=== PATIENT | female | born 1970 | race Caucasian/White ===

== ENCOUNTER 2018-12-19 13:07 | Outpatient (CLI) | payer BC, SELFPAY ==
--- NOTE | 2018-12-19 13:00 | DI.RAD_ITS ---
SYMPTOMS/DIAGNOSIS: INJURY TO RT KNEE, PAIN, S89.90XA RIGHT KNEE: Four views. Mild periarticular spurring is seen in the medial femoral tibial joint space. The joint spaces are otherwise well maintained. The bones are intact and normally mineralized. There are enthesophytes seen at the superior and inferior patella and the anterior tibial tuberosity. No radiopaque foreign bodies are seen in the soft tissues. No acute fracture or dislocation is present. IMPRESSION: Mild degenerative changes of the right knee.
== END 2018-12-19 13:27 ==
PROVIDERS: Visit Provider Family Medicine
DX: M25.561 Pain in right knee (principal); S89.91XA Unspecified injury of right lower leg, initial encounter; M17.11 Unilateral primary osteoarthritis, right knee
CPT/HCPCS: 73564

== ENCOUNTER 2020-03-16 12:46 | Outpatient (REF) | payer MEDICAID, SELFPAY ==
--- NOTE | 2020-03-16 11:30 | PAPFT_PTH ---
PATIENT: Yanci Nash LOC: [facility] U#:[id number] AGE/SX: 49/F ROOM: RE03/16/[address]: Brenda Melendez APRN : 1970 BED: DIS: 03/16/2020 SPEC #: [id number] RECD: 03/17/20 12:39 STATUS: CHRISTA REMagdaleno #: [id number] GRACIE: 03/16/20 11:[address]: Brenda Melendez DEPT: [facility] Cytology RECD BY: Sangita Hutchinson Tissues: 1 - CX/ENDOCX FOR PAP SMEARS Procedures: PAP THIN PREP/UVM Screening HPV DNA PROBE Comments: [id number]
== END 2020-03-16 13:06 ==
LOC: LBN 12:46
DX: Z12.4 Encounter for screening for malignant neoplasm of cervix (principal); Z11.59 Encounter for screening for other viral diseases
CPT/HCPCS: 88142; 87624

== ENCOUNTER 2020-04-09 00:20 | Outpatient (CLI) | payer BC, MEDICAID, SELFPAY ==
--- NOTE | 2020-04-09 06:00 | DI.MAMMO_ITS ---
EXAM: MAMMO SCREENING CLINICAL HISTORY: screening,z12.39 TECHNIQUE: Mammograms were interpreted according to the usual protocol including computer analysis w [employer] CAD system, tomosynthesis and C-view imaging. COMPARISON: 2010 through 2015 FINDINGS: The breasts are composed of scattered fibroglandular densities, Breast Density category B. Right breast: No suspicious masses or suspicious microcalcifications are seen. No skin thickening or abnormal axillary lymph nodes are seen. There has been no significant change from prior exams. Left breast: There has been interval development a circumscribed area of nodularity in the medial lef t breast at the level of the nipple on the MLO view. It measures roughly 15 millimeters in greatest dimension. There are no associated microcalcifications. No additional abnormalities are seen. Spot compression views and ultrasound recommended for further evaluation. IMPRESSION: New nodule in the medial left breast. Spot compression views and ultrasound are recommended for furt her evaluation. BI-RADS Cat 0 - Assessment Incomplete: Need additional imaging evaluation Breast Density Category B, scattered fibroglandular densities. Up to ten percent of cancers are not identified on mammography. A negative report may reinforce clinical impression. Adenosis and dense breasts may obscure an underlying neoplasm. False positive reports average 6 to 10%. Patient will receive a letter notifying them of these results.
== END 2020-04-09 00:40 ==
DX: Z12.31 Encounter for screening mammogram for malignant neoplasm of breast (principal); N63.20 Unspecified lump in the left breast, unspecified quadrant
CPT/HCPCS: 77063; 77067

== ENCOUNTER 2020-04-16 02:13 | Outpatient (CLI) | payer BC, MEDICAID, SELFPAY ==
--- NOTE | 2020-04-16 | DI.US_ITS ---
EXAM: MG MAMMO SCREEN CALL BACK UNI CLINICAL HISTORY: F/U MAMMO, INTERVAL DEVELOPMENT NODULARITY MEDIAL LT BREAST ON MLO VIEW TECHNIQUE: Mammograms were interpreted according to the usual protocol including computer analysis w Dr. Scribbles CAD system, tomosynthesis and C-view imaging. COMPARISON: FINDINGS: Additional mammographic views of the left breast and left breast ultrasound are interpreted in conjun ction. These examinations were obtained to evaluate a questionable area of nodularity seen in the me dial aspect of the left breast on recent examination in approximately the 9 to 10 o'clock position. Additional spot compression views show fairly well-circumscribed group of small nodules with findings suggesting hilar structure. Mammographic findings are consistent with small lymph nodes. Ultrasonographically the findings are somewhat atypical for lymph nodes, the lesions are reniform and the largest nodule measures about 18 millimeters in diameter, there is a probable hilar structure, h owever the nodularity is of high echogenicity with some questionable posterior shadowing. Mildly inc reased vascularity noted centrally. IMPRESSION: Suspected intramammary lymph nodes, atypical ultrasound appearance, malignancy not excluded. Correla tion with ultrasound-guided biopsy recommended. BI-RADS Category 4 - Suspicious Abnormality: Biopsy should be considered Breast Density - Category B - Scattered areas of fibroglandular density
== END 2020-04-16 02:33 ==
DX: Z12.39 Encounter for other screening for malignant neoplasm of breast (principal); R92.8 Other abnormal and inconclusive findings on diagnostic imaging of breast; N63.21 Unspecified lump in the left breast, upper outer quadrant
CPT/HCPCS: 76642; 77063; 77067

== ENCOUNTER 2020-08-17 01:23 | Outpatient (CLI) | payer BC, MEDICAID, SELFPAY ==
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
--- NOTE | 2020-08-17 13:58 | DI.MAMMO_ITS ---
EXAM: MG MAMMO DIAGNOSTIC UNI MG MAMMO DIAGNOSTIC UNI AND UNILATERAL BREAST ULTRASOUND -LEFT CLINICAL HISTORY: [facility] [place] recommendation - hematoma, no Bx needed, abnl lt breast, R92.8. TECHNIQUE: Unilateral spot mammographic images were obtained with [employer] and util izing computer aided detection (CAD). LEFT BREAST ULTRASOUND ALSO PERFORMED COMPARISON: Prior mammograms, the most recent being April 09, 2020. FINDINGS: Previously described asymmetric density medially in the left breast has slightly decreased in size. I n addition, there is another 5 x 3 millimeter nodule closer to the nipple in the medial aspect of the left breast noted. There are other new additional left breast mammogram findings. We thereafter performed left breast ultrasound and this again reveals the previously described relati vely superficial finding at the 9 o'clock position which has the appearance of fat necrosis-hematoma. Second ultrasound finding is a 3 millimeter microcyst at the 9-10 o'clock position which corresponds to the smaller nodule on the mammogram. IMPRESSION: No evidence of malignancy. Both findings on mammography and ultrasound of the left breast have benign appearance, 1 being fat necrosis/hematoma and the other being a simple microcyst which corresponds t o the smaller new nodule. Appropriate follow-up is to keep this patient on a yearly mammogram schedule, with earlier imaging if a self detected breast is noted. BI-RADS Category 2 - Benign Findings Breast Density - Category B - Scattered areas of fibroglandular density Breast density Category C or D implies that the patient has dense breast tissue. Dense breast tissue can make it harder to find cancer on a mammogram. Dense breast tissue is also associated with an incr eased risk of breast cancer. This information about the result of the mammogram report was provided to the patient to raise their awareness. Use this report when you speak with the patient about their risks for breast cancer, which includes their family history. At that time, you may recommend additional screening tests (Ultrasoun d or MRI) as these tests may add significant information. A negative radiographic report should not delay biopsy if a dominant or clinically suspicious mass is present. Up to ten percent of cancers are not identified on mammography. A negative report may reinforce clinical impression. Adenosis and dense breasts may obscure an underlying neoplasm. False positive reports average 6 to 10%. Patient will receive a letter notifying them of these results.
== END 2020-08-17 01:43 ==
DX: R92.8 Other abnormal and inconclusive findings on diagnostic imaging of breast (principal); N64.89 Other specified disorders of breast; N60.02 Solitary cyst of left breast
CPT/HCPCS: 76642; 77061; 77065; G0279

== ENCOUNTER 2024-01-29 11:38 | Outpatient (CLI) | payer MEDICAID, SELFPAY ==
[2024-01-29 12:22] LABS: Abs Immature Grans 0.02 10^3/uL (0.0-0.06); Absolute Basophil Count 0.11 10^3/uL (0.0-0.2); Absolute Eosinophil Count 0.09 10^3/uL (0.0-0.7); Absolute Lymphocyte Count 1.81 10^3/uL (1.2-3.4); Absolute Monocyte Count 0.63 10^3/uL (0.1-0.8); Absolute Neutrophil Count 7.14 10^3/uL (1.2-6.7); Basophils % 1.1 %; Eosinophils % 0.9 %; HCT 42.3 % (36.0-46.0); HGB 14.6 g/dL (11.2-15.7); Immature Grans % 0.2 %; Lymphocytes % 18.5 %; MCH 29.6 pg (27.0-33.0); MCHC 34.5 % (32.0-36.0); MCV 86 fL (80-95); MPV 10.9 fL (8.0-11.0); Monocytes % 6.4 %; Neutrophils % 72.9 %; Platelet Count 262 10^3/uL (130-400); RBC 4.93 10^6/uL (3.93-5.22); RDW 12.6 % (11.7-14.6); RDW-SD 38.9 fL
[2024-01-29 12:40] LABS: ALT 59 U/L (14-59); AST 34 U/L (15-37); Albumin 3.6 g/dL (3.4-5.0); Alkaline Phosphatase 74 U/L (46-116); BUN 12 mg/dL (7-18); Bilirubin, Total 0.6 mg/dL (0.2-1.0); CREATININE 1.1 mg/dL (0.55-1.02); Calcium 9.5 mg/dL (8.5-10.1); Calculated LDL 108 mg/dL (<100); Chloride 97 mmol/L (98-107); Cholesterol 194 mg/dL (<200); Estimated GFR 60.08 (mL/min/1.73m2); Glucose 410 mg/dL (74-106); HDL Cholesterol 37 mg/dL (40-60); Sodium 137 mmol/L (136-145); Total Protein 7.4 g/dL (6.4-8.2); Triglyceride 245 mg/dL (<150)
[2024-01-29 12:52] LABS: Hemoglobin A1C 10.9 % (<5.7)
== END 2024-01-29 11:39 | disposition home or self-care (01) ==
LOC: LOS 11:38
PROVIDERS: PCP Nurse Practitioner Family; Visit Provider Nurse Practitioner Family
DX: E11.9 Type 2 diabetes mellitus without complications (principal); R74.8 Abnormal levels of other serum enzymes; K61.1 Rectal abscess
CPT/HCPCS: 36415; 80053; 80061; 83036; 85025

== ENCOUNTER 2024-01-29 13:08 | Outpatient (REF) | payer MEDICAID, SELFPAY | END 2024-01-29 13:09 | disposition home or self-care (01) | LOC: LBN 13:08 | PROVIDERS: PCP Nurse Practitioner Family; Visit Provider Nurse Practitioner Family | DX: N89.8 Other specified noninflammatory disorders of vagina (principal) | CPT/HCPCS: 87480; 87510; 87660 ==

== ENCOUNTER 2024-05-18 12:41 | Outpatient (REF) | payer BC, SELFPAY ==
[2024-05-18 19:04] LABS: COMMENT (LAB VIEW ONLY) 112.08 mg/dL; Microalb ug/mg Crea 10.3 ug/mg Cr
== END 2024-05-18 12:42 | disposition home or self-care (01) ==
LOC: LBN 12:41
PROVIDERS: PCP Nurse Practitioner Family; Visit Provider Nurse Practitioner Family
DX: E11.9 Type 2 diabetes mellitus without complications (principal)
CPT/HCPCS: 82043; 82570

== ENCOUNTER 2024-06-03 01:16 | Outpatient (CLI) | payer BC, SELFPAY ==
--- NOTE | 2024-06-03 07:00 | DI.MAMMO_ITS ---
Exam(s) MAMMO SCREENING EXAM: MAMMO SCREENING CLINICAL HISTORY: screening,z12.39 TECHNIQUE: Bilateral full field digital CC and MLO mammographic images were obtained with 3D tomosyn thesis and utilizing computer aided detection (CAD). COMPARISON: Available for comparison. FINDINGS: Masses/Architectural Distortion: The well-circumscribed nodule in the medial right breast is unchange d compared to the prior examinations. No new or suspicious nodules are seen. No areas of architectu ral distortion are seen. Microcalcifications: No suspicious pleomorphic-type are seen. Skin Thickening/Nipple Retraction: None. IMPRESSION: 1. No significant interval change with no specific features of malignancy noted. 2. Unless there is more urgent need, screening mammography is recommended, as per [place] [employer] guidelines. BI-RADS Category 2 - Benign Findings Breast Density - Category B - Scattered areas of fibroglandular density Breast density category C or D implies that the patient has dense breast tissue. Dense breast tissue is very common and is not abnormal but dense breast tissue can make it harder to find cancer on a ma mmogram. Also, dense breast tissue may increase their breast cancer risk. This information about the result of the mammogram report was provided to the patient to raise their awareness. Use this report when you speak with the patient about their risks for breast cancer, which includes their family hist ory. At that time, you may recommend for more screening tests (Ultrasound or MRI) as they might be us eful based on their risk. A negative radiographic report should not delay biopsy if a dominant or clinically suspicious mass is present. Up to ten percent of cancers are not identified on mammography. A negative report may reinforce clinical impression. Adenosis and dense breasts may obscure an underlying neoplasm. False positive reports average 6 to 10%. Patient will receive a letter notifying them of these results.
== END 2024-06-03 01:36 ==
LOC: DI 01:16
PROVIDERS: PCP Nurse Practitioner Family; Visit Provider Nurse Practitioner Family
DX: Z12.31 Encounter for screening mammogram for malignant neoplasm of breast (principal)
CPT/HCPCS: 77063; 77067

== ENCOUNTER 2025-05-31 10:24 | Outpatient (REF) | payer BC, SELFPAY ==
--- NOTE | 2025-05-31 09:20 | PAPFT_PTH ---
PATIENT: Yanci Nash LOC: [facility] U#:[id number] AGE/SX: 54/F ROOM: RE05/31/[address]: Brian Tellez DNP : 1970 BED: DIS: 05/31/2025 SPEC #: [id number] RECD: 06/02/25 11:35 STATUS: CHRISTA REQ #: [id number] GRACIE: 05/31/25 09:[address]: Brian Voss DEPT: [facility] Cytology RECD BY: Sasha Walker Tissues: 1 - CX/ENDOCX FOR PAP SMEARS Procedures: PAP THIN PREP/UVM Screening HPV DNA PROBE Comments: [id number] (HPV 16 & 18/45) (CHLAMYDIA/GC)
[2025-05-31 16:14] LABS: Hemoglobin A1C 10.2 % (<5.7)
[2025-05-31 16:15] LABS: ALT 43 U/L (14-59); AST 20 U/L (15-37); Albumin 3.6 g/dL (3.4-5.0); Alkaline Phosphatase 79 U/L (46-116); Anion Gap 10.9 mmol/L (3-11); BUN 15 mg/dL (7-18); Bilirubin, Total 0.3 mg/dL (0.2-1.0); CO2 28.1 mmol/L (21.0-32.0); Calcium 9.2 mg/dL (8.5-10.1); Chloride 99 mmol/L (98-107); Cholesterol 128 mg/dL (<200); Glucose 275 mg/dL (74-106); HDL Cholesterol 38 mg/dL (>or=50); Potassium 4.2 mmol/L (3.5-5.1); Sodium 138 mmol/L (136-145); Total Protein 7.2 g/dL (6.4-8.2)
[2025-06-03 14:10] LABS: Chlamydia Result Negative (Negative); GC Result Negative (Negative)
== END 2025-05-31 10:25 | disposition home or self-care (01) ==
LOC: LBN 10:24
PROVIDERS: PCP Nurse Practitioner Family; Visit Provider Nurse Practitioner Family
DX: E11.9 Type 2 diabetes mellitus without complications (principal); N89.8 Other specified noninflammatory disorders of vagina; Z12.4 Encounter for screening for malignant neoplasm of cervix
CPT/HCPCS: 80053; 80061; 87491; 87591; 88142; 83036; 87480; 87510; 87624; 87660

== ENCOUNTER 2025-06-16 03:37 | Outpatient (CLI) | payer BC, SELFPAY ==
--- NOTE | 2025-06-16 07:45 | DI.MAMMO_ITS ---
Exam(s) MAMMO SCREENING EXAM: MAMMO SCREENING CLINICAL HISTORY: screening,Z12.39. TECHNIQUE: Bilateral full field digital CC and MLO mammographic images were obtained with 3D tomosynthesis and utilizing computer aided detection (CAD). COMPARISON: Prior mammograms were reviewed. FINDINGS: No new left breast findings. In the right breast there is a medially located benign-appearing nodule measuring 5 x 4 mm located 5 cm in from the nipple, medial of center on the CC view. This nodule is not increased in size since 2019. There are no new spiculated masses nor new malignant appearing microcalcification groups. There is no significant architectural distortion nor skin thickening-retraction. IMPRESSION: Stable benign-appearing findings. No radiographic evidence of malignancy. BI-RADS Category 2 - Benign Findings Breast Density - Category B - There are scattered areas of fibroglandular density. Breast density Category C or D implies that the patient has dense breast tissue. Dense breast tissue can make it harder to find cancer on a mammogram. Dense breast tissue is also associated with an increased risk of breast cancer. This information about the result of the mammogram report was provided to the patient to raise their awareness. Use this report when you speak with the patient about their risks for breast cancer, which includes their family history. At that time, you may recommend additional screening tests (Ultrasound or MRI) as these tests may add significant information. A negative radiographic report should not delay biopsy if a dominant or clinically suspicious mass is present. Up to ten percent of cancers are not identified on mammography. A negative report may reinforce clinical impression. Adenosis and dense breasts may obscure an underlying neoplasm. False positive reports average 6 to 10%. Patient will receive a letter notifying them of these results.
== END 2025-06-16 03:57 ==
LOC: DI 03:37
PROVIDERS: PCP Nurse Practitioner Family; Visit Provider Nurse Practitioner Family
DX: Z12.31 Encounter for screening mammogram for malignant neoplasm of breast (principal); E11.9 Type 2 diabetes mellitus without complications
CPT/HCPCS: 77063; 77067

== ENCOUNTER 2025-07-04 07:34 | Day surgery (SDC) | payer BC, SELFPAY ==
[2025-07-04] VITALS (18 sets, daily range): BP systolic 132–166; BP diastolic 79–98; PULSE 74–81; RESP 15–21; TEMP 35.8–36.7; O2SAT 93–97; BMI 43.9
[2025-07-04] MEDS: Lactated Ringers 1,000 ML 80 ML IV (08:10)
--- NOTE | 2025-07-04 09:01 | W.ANESPRE ---
General Info Date of Service Date Performed: 07/04/25 Height: 5 ft 4.25 in Weight: 117.2 kg Body Mass Index (BMI): 43.9 Surgical Procedure: Operation Date: 07/04/25 08:40 Proposed Procedure Side Surgeon p Excision Cyst of Face Indiana Mackey MD s Exam Under Anesthesia Possible Seton Placement Indiana Mackey MD Meds Allergies and Home Medications Allergies Allergy/AdvReac Type Severity Reaction Status Date / Time No Known Allergies Allergy Verified 07/04/25 07:52 Home Medication Medication Instructions Recorded meclizine 25 mg tablet 25 mg PO TID PRN vertigo #60 tabs 01/03/25 amlodipine 5 mg tablet 5 mg PO DAILY #90 tabs 05/17/25 chlorthalidone 25 mg tablet 25 mg PO DAILY #90 tabs 05/17/25 losartan 50 mg tablet 50 mg PO DAILY #90 tabs 05/17/25 metformin 1,000 mg tablet 1,000 mg PO BID #180 tabs 05/17/25 omeprazole 20 mg capsule,delayed 20 mg PO DAILY #90 caps 05/17/25 release rosuvastatin 10 mg tablet 10 mg PO HS #90 tabs 05/17/25 Current Visit Medications: Current Medications Generic Name Dose Route Start Last Admin Trade Name Freq PRN Reason Stop Dose Admin Ringer's Solution 1,000 mls @ 80 mls/hr 07/04/25 06:00 07/04/25 08:10 IV 07/04/25 23:59 80 mls/hr INFUSION DANIEL Administration Cefazolin Sodium/Dextrose 2 gm in 50 mls @ 100 mls/hr 07/04/25 06:00 Ancef Duplex IVPB 07/04/25 23:59 PREOP DANIEL IV Miscellaneous Supplies 1 each 07/04/25 06:00 Iv Access IV 07/04/25 23:59 DIRECTED DANIEL Sodium Chloride 0 ml 07/04/25 06:00 Normal Saline Flush 10 Ml Syr IV 07/04/25 23:59 PRN PRN Sodium Chloride 0 ml 07/04/25 06:00 Normal Saline 10 Ml Vial IJ 07/04/25 23:59 DIRECTED PRN Sterile Water 0 ml 07/04/25 06:00 Water,Injection,Sterile 10 Ml Vial IJ 07/04/25 23:59 DIRECTED PRN PFSH Active Problems Active Problems: Problem Status Onset Code Facial lesion Acute L98.9 Vaginal pruritus Acute N89.8 Perirectal abscess Acute K61.1 Elevated liver enzymes Acute R74.8 Elbow pain, right Acute M25.521 GERD (gastroesophageal reflux disease) Chronic K21.9 Abnormality of left breast on screening mammogram Acute R92.8 Increased body mass index (BMI) Acute R63.8 Urinary incontinence Acute 10/13/15 R32 Obstructive sleep apnea syndrome Acute 02/14/12 G47.33 Essential hypertension Acute 09/17/13 I10 Diabetes mellitus Acute 11/12/12 E11.9 Allergic rhinitis Acute J30.9 Medical History Medical History Adnexal cyst (07/13/16) Skin tags, multiple acquired (07/24/17) Knee pain Acute deep vein thrombosis (DVT) of popliteal vein of left lower extremity (08/17/16) Deep vein thrombosis (DVT) of popliteal vein of left lower extremity 08/10/16 s/p laparoscopic R sided andexal cystectom for torsed paratubal cyst. Pt will be treated for 6mo with anticoagulation. Chronic hypertension Diabetes BMI 45.0-49.9, adult BMI 47 on 10/13/15 Chronic vulvitis 09/2015 x1mo. Rx with PO Fluconazole w/o improvement. 10/13/15 vag path neg. Emperically Rx with Terazole and Lotromin. Surgical History Surgical History Diagnostic Laproscopy (08/03/16) Laparoscopic R cystectomy of torsed R paratubal cyst. Pt had DVT 1 week after procedure. needs 6mo of anticoagulants. Arthroplasty of knee right x 2 Tobacco Smoking/Tobacco Use Status: Former Tobacco Use Passive smoking exposure: Yes Second hand exposure: Yes Counseling given: patient declined Alcohol Alcohol Intake: current Alcohol intake frequency: a few times a month Alcohol type: beer, wine and hard liquor Substance Use Substance use: Socially Substance use type: marijuana Counseling provided: none Vital Signs and Lab Results Vital Signs Most Recent Vital Signs in EMR: Most Recent Vital Signs Temp Pulse Resp BP Pulse Ox 36.5 C 81 20 154/90 H 97 07/04/25 07:39 07/04/25 07:39 07/04/25 07:39 07/04/25 07:39 07/04/25 07:39 Point of Care Results Point of Care Results: Finger Stick Blood Glucose 232 07/04/25 07:53 Anesthesia Assessment and Plan Anesthesia History Personal History: PONV Family History: No Family History of Anesthesia Complications Exercise Tolerance Exercise Tolerance: Metabolic Equivalents>4 Pertinent Negatives Pertinent Negatives: No Symptoms of GERD (Rx) Cardiac & Pulmonary Exam Cardiac Exam: Normal S1/S2 Heart Sounds Pulmonary Exam: Clear Bilateral Breath Sounds Implantable Cardiac Device Does patient have a Pacemaker or an ICD?: No Airway Exam Known Difficult Airway: No Mallampati Class: 2 Mouth Opening: Normal (> 3cm) Thyromental Distance: Greater than 3 cm Neck Range of Motion: Full ROM Neck Circumference: Normal Teeth Condition: Normal Dentition ASA Classification ASA Score: ASA 2 Emergency Case?: No NPO Status NPO Status: NPO Clears >2 hours, Solids >8 hours Status Status: Not Relevant due to Medical History Anesthesia Plan Resuscitation Status: Full Code Anesthesia Technique: General Anesthesia Airway Planned: LMA Monitors Used: Standard Monitors and SedLine
[2025-07-04] MEDS: ceFAZolin 2 GM/50 ML BAG IVPB (09:33)
--- NOTE | 2025-07-04 09:43 | SKI_PTH ---
PATIENT: Yanci Nash LOC: [facility] U#:[id number] AGE/SX: 54/F ROOM: RE07/04/[address]: Indiana Mackey : 1970 BED: DIS: 07/04/2025 SPEC #: [id number] RECD: 07/04/25 12:18 STATUS: CHRISTA REQ #: [id number] GRACIE: 07/04/25 09:[address]: Indiana Mackey DEPT: Surgical Specimen RECD BY: Sangita Hutchinson ENTERED: 07/04/25 12:18 SP TYPE: SILVIO MCKAY DR: Brian Tellez DNP Tissues: 1 - SKIN CYST/TAG/DEBRIDEMENT Procedures: SKIN BIOPSY LEVEL 3 Comments: [id number]
[2025-07-04] MEDS: Lidocaine 1% Pres-Free W/EPI 1/200,000 10 ML VIAL (10:07)
[2025-07-04] MEDS: Bacitracin 1 PACKET (10:07)
--- NOTE | 2025-07-04 10:26 | W.PM.DSUDISC ---
Date of service: 07/04/25 Discharge Plan Disposition Patient Disposition: Home Discharge Details Reason For Visit: Cyst of face, perianal abscess Attending Provider: Indiana Mackey Primary Care Provider: Brian Voss Recommendations for Follow Up Recommended tests to be ordered by follow up provider: Follow up pathology Home Meds and New Rx's Prescriptions: Continued meclizine 25 mg tablet 25 mg PO TID PRN (Reason: vertigo) Qty: 60 1RF amlodipine 5 mg tablet 5 mg PO DAILY Qty: 90 4RF losartan 50 mg tablet 50 mg PO DAILY Qty: 90 3RF metformin 1,000 mg tablet 1,000 mg PO BID Qty: 180 4RF omeprazole 20 mg capsule,delayed release(DR/EC) 20 mg PO DAILY Qty: 90 3RF chlorthalidone 25 mg tablet 25 mg PO DAILY Qty: 90 4RF rosuvastatin 10 mg tablet 10 mg PO HS Qty: 90 4RF Discharge Instructions Instructions: Anal Abscess and Fistula, Adult (DC) Additional Instructions: Your procedure went well today. The cyst was excised from your face and closed with suture that will need to be removed in the office. We will schedule you a follow up appointment in the office in 5-7 days for suture removal. For this incision you should shower tomorrow and allow warm soapy water to run over the incision. Do not rub the incision. Pat the incision dry and after you may leave the incision open to air. If there is any redness around it or concerning drainage please contact the general surgery office. You may take tylenol and ibuprofen (as tolerated) for this incision. Additional a fistula was found during your exam. A seton was placed through this fistula. This will help control recurrent infections and abscess. You can shower as normal and pat the area dry. Please do not pull or rub on the seton or rubber band. This will remain in place. For pain control you can take tylenol and ibuprofen (as tolerated) and apply ice to the area. Please make sure to use stool softeners to avoid constipation. Sitz baths can also assist with pain control. There may be some bleeding initially which is normal. A prescription for a small amount of narcotic pain medication was sent to your pharmacy to use as needed. Stand Alone Forms: Portal Information Activity:: Activity as Tolerated Diet:: As Tolerated Discharge Orders Discharge Orders: Discharge Order (Routine); Ordered 07/04/25 Ordered By: Indiana Mackey
--- NOTE | 2025-07-04 10:36 | ROE_ITS ---
Operative Note Operative Note PRE-OP DIAGNOSIS: Cyst of face, recurrent perianal abscess POST-OP DIAGNOSIS: other (Cyst of face, perianal fistula ) PROCEDURE: Excision of cyst of face, exam under anesthesia and placement of seton. SURGEON: Indiana Mackey [employer] OPERATOR: Jonna Chow ANESTHESIA TYPE: Local By Surgeon and General LMA/ETT Refer to Anesthesia Record ESTIMATED BLOOD LOSS: 5 PATHOLOGY: other (Cyst of face) COMPLICATIONS: None Patient was transported to: PACU Patient's condition: stable Implants: None. Indications: Patient is a 54 yo female who was evaluated in the general surgery clinic for a recurrent perianal abscess. She notes that she has had episodes of increased pain in this area with purulent drainage. This has been going on for quite some time. On exam in the office she had evidence of the previously drained perianal abscess with concern for fistula. She also in the clinic noted a cyst on her face that has been present for a while. She notes that this cyst often rubs on her glasses and she would like it removed. For her perianal abscess and exam under anesthesia was discussed with her with possible seton placement pending identification of fistula. For the cyst of her face an excision was discussed with her while she was in the operating room. The risks and benefits of the procedure were discussed with her at length as well as postoperative recovery. Consent was obtained prior to the procedure. Findings: Cyst of face excised and sent as specimen. Hemostasis achieved and incision closed in layers. Exam under anesthesia then performed with evidence of fistula. Fistula tract identified and seton placed. Procedure Description: After induction of anesthesia the patients face was then prepped and draped in sterile fashion. Prior to incision, an additional timeout was performed, which again confirmed the patient's name, date of , and the procedure to be performed, including laterality, and antibiotics were given within an hour of incision. The procedure was initiated by marking a planned incision following the natural lines of the face around the cyst of the right cheek. Local anesthesia was then injected into the planned incision. An elliptical incision was then made surrounding the cyst and following the natural lines of the face. The cyst was excised sharply in its entirety. The excised specimen measured around 15mm x 6mm. The cyst was sent for specimen. Hemostasis was achieved in the incision. The incision was then closed in layers first with interrupted deep dermal 4-0 Monocryl. The skin was then reapproximated with a 6-0 Prolene suture. The incision was then cleaned and bacitracin applied to the incision. Attention was then turned to the exam under anesthesia. The patient was placed in lithotomy and prepped and draped in the usual sterile fashion. Bilateral pudendal nerve blocks were then performed with local anesthesia. A digital exam was performed and revealed no lesions or masses. In the left anterior aspect of the anal region there was what appeared to be a fistula opening. The fistula probe was placed through this external opening and it tracked to the anterior midline. The fistula probe was placed easily through this tract. A red vessel loop acting as a seton was then placed through this fistula tract. This was secured to itself using silk suture. Hemostasis was adequate. A dressing was then placed. At this point, the patient was awoken, extubated and transported to the recovery room in stable condition. Sponge and instrument counts were correct. Date of Procedure: 07/04/25
--- NOTE | 2025-07-04 11:39 | W.ANESPOSTOP ---
Postoperative Evaluation Date, Time and Location Date Performed: 07/04/25 Time Performed: 11:39 Patient Location: Day Surgery Unit Vital Signs Most Recent Imported Vital Signs: Most Recent Vital Signs Temp Pulse Resp BP Pulse Ox 36.3 C L 79 16 141/86 H 96 07/04/25 11:36 07/04/25 11:36 07/04/25 11:36 07/04/25 11:36 07/04/25 11:36 Pain Score Most Recent Pain Score: Most Recent Pain Score Pain Level 0 07/04/25 11:36 Assessment Mental Status: Awake (Alert & Oriented to Patient Baseline) Airway and Respiratory Function: Patent airway with normal (patient baseline) respiratory exam Cardiovascular Function: Hemodynamically Stable Hydration Status: Adequately Hydrated Nausea & Vomiting: No Nausea or Vomiting Pain: Pain is tolerable per patient Peripheral Nerve Block: Patient did not receive a nerve block
== END 2025-07-04 11:58 | disposition home or self-care (01) ==
PROVIDERS: PCP Nurse Practitioner Family; Visit Provider Student in an Organized Health Care Education/Training Program
PROC: (CPT 46020; principal; 2025-07-04 08:30)
PROC: (CPT 46020; 2025-07-04 08:30)
DX: L94.2 Calcinosis cutis (principal); K60.30 Anal fistula, unspecified; E11.9 Type 2 diabetes mellitus without complications; Z79.84 Long term (current) use of oral hypoglycemic drugs; K21.9 Gastro-esophageal reflux disease without esophagitis; G47.33 Obstructive sleep apnea (adult) (pediatric); I10 Essential (primary) hypertension
CPT/HCPCS: 46020; 11442; 12051; 88304; J0131; J0690; J1100; J2003; J2004; J2405; J2704; J3010

== ENCOUNTER 2025-08-09 15:13 | Outpatient (REF) | payer BC, SELFPAY ==
[2025-08-09 16:25] LABS: ALT 55 U/L (10-49); AST 37 U/L (<34); Albumin 4.1 g/dL (3.2-5.0); Alkaline Phosphatase 75 U/L (46-116); Anion Gap 9.7 mmol/L (3-11); BUN 12 mg/dL (9-23); Bilirubin, Total 0.4 mg/dL (0.2-1.2); CO2 28.3 mmol/L (20.0-31.0); Calcium 9.2 mg/dL (8.3-10.6); Chloride 100 mmol/L (98-107); Glucose 280 mg/dL (74-106); Potassium 3.9 mmol/L (3.5-5.1); Sodium 138 mmol/L (136-145); Total Protein 6.7 g/dL (5.7-8.2)
== END 2025-08-09 15:14 | disposition home or self-care (01) ==
LOC: LBN 15:13
PROVIDERS: PCP Nurse Practitioner Family; Visit Provider Nurse Practitioner Family
DX: L94.2 Calcinosis cutis (principal); E11.9 Type 2 diabetes mellitus without complications; R74.8 Abnormal levels of other serum enzymes
CPT/HCPCS: 80053; 82985; 83970; 84100